=== PATIENT | male | born 1975 | race Two or more races ===

== ENCOUNTER 2022-02-12 01:01 | Inpatient (IN) | payer MEDICAID ==
[~2022-02-12] VITALS: Ht 167.6 cm; Wt 80.7 kg
[2022-02-12] MEDS ORDERED: SODIUM CHLORIDE 0.9% 1,000 ML IV ONE ×2 (01:30→02:15)
[2022-02-12 01:53] LABS: CHLORIDE 108 mEq/L (98-107)
[2022-02-12 02:09] LABS: ETHANOL BLOOD < 10 mg/dL
[2022-02-12] MEDS ORDERED: LACTULOSE 20G/30ML UDC PO SCH (02:15)
[2022-02-12 02:26] LABS: BASOPHILS % 1.1 % (0.0-2.0); EOSINOPHILS % 1.7 % (0.0-5.0); HEMOGLOBIN. 9.7 g/dL (14.0-18.0); LYMPHOCYTES % 12.8 % (20.0-50.0); MEAN CORPUSCULAR HEMOGLOBIN 23.6 pg (28.0-32.0); MEAN CORPUSCULAR VOLUME 75.3 fL (80.0-94.0); MEAN PLATELET VOLUME 10.6 fl (7.4-10.4); MONOCYTES % 14.3 % (2.0-8.0); NEUTROPHILS % 70.1 % (40.0-76.0); PLATELET 100 x1000/uL (130-400); RED BLOOD CELL COUNT 4.12 mill/uL (4.7-6.1); RED CELL DISTRIBUTION WIDTH 18.8 % (11.6-14.6)
[2022-02-12] MEDS ORDERED: LACTULOSE 300 ML in WATER FOR IRRIGATION,STERILE 700 ML IR SCH (03:00)
[2022-02-12 03:30] LABS: CLARITY URINE CLEAR (CLEAR); COLOR URINE DARK YELLOW (YELLOW); KETONES URINE NEGATIVE (NEGATIVE); LEUKOCYTE ESTERASE URINE TRACE (NEGATIVE); NITRITE URINE NEGATIVE (NEGATIVE); OCCULT BLOOD URINE NEGATIVE (NEGATIVE); PH URINE >=9.0 (4.5-8.0); PROTEIN URINE 1+ (NEGATIVE); SPECIFIC GRAVITY URINE 1.025 (1.005-1.030)
[2022-02-12 03:48] LABS: *AMPHETAMINES SCREEN URINE NEGATIVE (NEGATIVE); *BARBITURATES SCREEN URINE NEGATIVE (NEGATIVE); *BENZODIAZEPINES SCREEN URINE NEGATIVE (NEGATIVE); *COCAINE SCREEN URINE NEGATIVE (NEGATIVE); CANNABINOID URINE SCREEN NEGATIVE (NEGATIVE); METHADONE URINE SCREEN NEGATIVE (NEGATIVE); OPIATES URINE SCREEN NEGATIVE (NEGATIVE); PHENCYCLIDINE URINE SCREEN NEGATIVE (NEGATIVE)
[2022-02-12] MEDS ORDERED: CEFTRIAXONE 1 G PREMIX 50 ML IV SCH (04:45)
[2022-02-12] MEDS: SODIUM CHLORIDE 0.45% 1,000 ML IV SCH (08:30)
[2022-02-12] MEDS ORDERED: ACETAMINOPHEN 325MG TABLET PO PRN (08:30)
[2022-02-12] MEDS ORDERED: GUAIFENESIN 200MG/10ML SUGAR FREE UDC PO PRN (08:30)
[2022-02-12] MEDS ORDERED: ONDANSETRON HCL 4MG/2ML INJ IV PRN (08:30)
[2022-02-12] MEDS ORDERED: MAGNESIUM/ALUMINUM HYDROXIDE/SIMETHICONE 30ML UDC PO PRN (08:30)
[2022-02-12] MEDS ORDERED: IPRATROPIUM/ALBUTEROL 0.5-3(2.5)MG/3ML NEB NEB PRN (08:30)
[2022-02-12] MEDS ORDERED: CLONIDINE 0.1MG TABLET PO PRN (08:30)
[2022-02-12] MEDS ORDERED: DOCUSATE SODIUM 100MG CAPSULE PO PRN (08:30)
[2022-02-12] MEDS ORDERED: NA PHOS,M-B/NA PHOS,DI-BA ENEMA 118ML PR PRN (08:30)
[2022-02-12] MEDS ORDERED: NALOXONE HCL 0.4MG/ML VIAL IV PRN (08:45)
[2022-02-12] MEDS: LORAZEPAM 2MG/ML CPJ IV PRN ×2 (09:46→18:31)
[2022-02-12 10:37] LABS: TOTAL IRON BINDING CAPACITY 387 ug/dL (250-450)
[2022-02-12 11:03] LABS: FOLIC ACID (FOLATE) SERUM 17.7 ng/mL (>5.38)
[2022-02-12] MEDS: IRON SUCROSE COMPLEX 100 MG/5 ML ML IV SCH (12:30)
[2022-02-12] MEDS ORDERED: LACTULOSE 300 ML in WATER FOR IRRIGATION,STERILE 700 ML IR NR (14:00)
[2022-02-12] MEDS: DIPHENHYDRAMINE 50MG/ML VIAL IV PRN (15:16)
[2022-02-12] MEDS: MORPHINE SULFATE 2 MG/ML CPJ (NOT FOR IM USE) IV PRN (15:48)
[2022-02-12 23:20] VITALS: BP 120/55
[2022-02-12 23:22] VITALS: BP 120/55
[2022-02-13] VITALS: BP 132/79
[2022-02-13] MEDS: SODIUM CHLORIDE 0.45% 1,000 ML IV SCH (00:12)
[2022-02-13] MEDS ORDERED: SPIR50TA5 PO (03:27)
[2022-02-13 04:00] VITALS: BP 154/92
[2022-02-13 06:13] LABS: CHLORIDE 110 mEq/L (98-107)
[2022-02-13 06:18] LABS: EOSINOPHILS % 2.4 % (0.0-5.0); HEMATOCRIT. 27.6 % (42.0-52.0); HEMOGLOBIN. 8.9 g/dL (14.0-18.0); LYMPHOCYTES % 13.5 % (20.0-50.0); MEAN CORPUSCULAR HEMOGLOBIN 23.8 pg (28.0-32.0); MEAN CORPUSCULAR VOLUME 73.9 fL (80.0-94.0); MEAN PLATELET VOLUME 9.9 fl (7.4-10.4); MONOCYTES % 14.6 % (2.0-8.0); NEUTROPHILS % 67.5 % (40.0-76.0); PLATELET 96 x1000/uL (130-400); RED BLOOD CELL COUNT 3.73 mill/uL (4.7-6.1); RED CELL DISTRIBUTION WIDTH 18.7 % (11.6-14.6)
[2022-02-13 08:00] VITALS: BP 166/89
[2022-02-13 10:37] LABS: INR 1.3; PROTHROMBIN TIME 13.8 sec (9.6-11.0)
[2022-02-13 12:00] VITALS: BP 155/100
[2022-02-13] MEDS: IRON SUCROSE COMPLEX 100 MG/5 ML ML IV SCH (12:27)
[2022-02-13] MEDS: MORPHINE SULFATE 2 MG/ML CPJ (NOT FOR IM USE) IV PRN ×2 (12:29→21:32)
[2022-02-13] MEDS: HYDROCODONE/ACETAMINOPHEN 5/325MG TABLET PO PRN (14:11)
[2022-02-13] MEDS: LORAZEPAM 2MG/ML CPJ IV PRN (15:25)
[2022-02-13 16:00] VITALS: BP 156/95
[2022-02-13 16:35] LABS: HEPATITIS B SURFACE ANTIGEN NEGATIVE
[2022-02-13 20:00] VITALS: BP 159/90
[2022-02-13] MEDS: LACTULOSE 20G/30ML UDC PO SCH (21:31)
[2022-02-14] VITALS: BP 126/81
[2022-02-14] MEDS: DIPHENHYDRAMINE 50MG/ML VIAL IV PRN (00:03)
[2022-02-14] MEDS: SODIUM CHLORIDE 0.45% 1,000 ML IV SCH ×2 (00:04→20:36)
[2022-02-14] MEDS: MORPHINE SULFATE 2 MG/ML CPJ (NOT FOR IM USE) IV PRN ×2 (03:03→14:33)
[2022-02-14 04:00] VITALS: BP 141/65
[2022-02-14] MEDS: LACTULOSE 20G/30ML UDC PO SCH ×3 (05:54→21:20)
[2022-02-14 07:18] LABS: BASOPHILS % 0.9 % (0.0-2.0); EOSINOPHILS % 4.3 % (0.0-5.0); HEMATOCRIT. 27.6 % (42.0-52.0); HEMOGLOBIN. 8.9 g/dL (14.0-18.0); LYMPHOCYTES % 15.1 % (20.0-50.0); MEAN CORPUSCULAR HEMOGLOBIN 23.8 pg (28.0-32.0); MEAN CORPUSCULAR VOLUME 73.6 fL (80.0-94.0); MEAN PLATELET VOLUME 9.4 fl (7.4-10.4); MONOCYTES % 14.6 % (2.0-8.0); NEUTROPHILS % 65.1 % (40.0-76.0); PLATELET 102 x1000/uL (130-400); RED BLOOD CELL COUNT 3.75 mill/uL (4.7-6.1); RED CELL DISTRIBUTION WIDTH 19.1 % (11.6-14.6)
[2022-02-14 07:36] LABS: INR 1.3; PROTHROMBIN TIME 14.1 sec (9.6-11.0)
[2022-02-14 08:33] LABS: CHLORIDE 109 mEq/L (98-107)
[2022-02-14] MEDS ORDERED: LIDOCAINE HCL/PF 1% 10 MG/ML 5ML VIAL ONE ×2 (08:56→08:57)
[2022-02-14] MEDS ORDERED: SODIUM BICARBONATE 4% (2.4MEQ) 5ML VIAL IV ONE (08:56)
[2022-02-14 12:00] VITALS: BP 112/74
[2022-02-14] MEDS: IRON SUCROSE COMPLEX 100 MG/5 ML ML IV SCH (12:48)
[2022-02-14] MEDS: RIFAXIMIN 550 MG TABLET PO SCH ×2 (12:49→21:20)
[2022-02-14 16:00] VITALS: BP 114/73
[2022-02-14] MEDS: HYDROCODONE/ACETAMINOPHEN 5/325MG TABLET PO PRN (20:36)
[2022-02-14] MEDS: LORAZEPAM 2MG/ML CPJ IV PRN (23:10)
[2022-02-15] VITALS: BP 124/79
[2022-02-15 04:00] VITALS: BP 133/88
[2022-02-15] MEDS: LACTULOSE 20G/30ML UDC PO SCH ×2 (05:56→14:00)
[2022-02-15 07:32] LABS: EOSINOPHILS % 3.6 % (0.0-5.0); HEMATOCRIT. 28.5 % (42.0-52.0); HEMOGLOBIN. 9.1 g/dL (14.0-18.0); LYMPHOCYTES % 12.8 % (20.0-50.0); MEAN CORPUSCULAR HEMOGLOBIN 23.8 pg (28.0-32.0); MEAN PLATELET VOLUME 10.5 fl (7.4-10.4); MONOCYTES % 12.8 % (2.0-8.0); NEUTROPHILS % 69.8 % (40.0-76.0); PLATELET 115 x1000/uL (130-400); RED CELL DISTRIBUTION WIDTH 18.6 % (11.6-14.6)
[2022-02-15 07:59] LABS: CHLORIDE 108 mEq/L (98-107)
[2022-02-15 08:00] VITALS: BP 149/95
[2022-02-15] MEDS: RIFAXIMIN 550 MG TABLET PO SCH (09:43)
[2022-02-15 12:00] VITALS: BP_SYST 111; BP_SYST 149; BP_DIAS 61; BP_DIAS 81
[2022-02-15 13:47] VITALS: BP 111/61
== END 2022-02-15 16:15 | disposition home or self-care (01) | DRG 279 ==
LOC: ER 01:01 → 7WST 04:33 → ENRESERV 21:20
PROVIDERS: ADMIT Internal Medicine; ATTEND Internal Medicine
PROC: 0JBR0ZZ Excision of Left Foot Subcutaneous Tissue and Fascia, Open Approach (ICD-10-PCS; principal; 2022-02-14)
PROC: 0JBQ0ZZ Excision of Right Foot Subcutaneous Tissue and Fascia, Open Approach (ICD-10-PCS; 2022-02-14)
PROC: 0W9G3ZZ Drainage of Peritoneal Cavity, Percutaneous Approach (ICD-10-PCS; 2022-02-14)
DX: K72.90 Hepatic failure, unspecified without coma (principal); G93.41 Metabolic encephalopathy; D61.818 Other pancytopenia; R18.8 Other ascites; E72.20 Disorder of urea cycle metabolism, unspecified; D50.9 Iron deficiency anemia, unspecified; J45.909 Unspecified asthma, uncomplicated; N39.0 Urinary tract infection, site not specified; I10 Essential (primary) hypertension; R74.01 Elevation of levels of liver transaminase levels; L85.9 Epidermal thickening, unspecified; Z20.822 Contact with and (suspected) exposure to COVID-19; E11.628 Type 2 diabetes mellitus with other skin complications; S91.102A Unspecified open wound of left great toe without damage to nail, initial encounter; S91.104A Unspecified open wound of right lesser toe(s) without damage to nail, initial encounter
CPT/HCPCS: 36415; 49083; 71045; 72170; 76700; 78227; 80048; 80053; 80076; 80305; 80320; 81003; 82040; 82140; 82607; 82728; 82746; 82962; 83540; 83550; 83605; 84145; 84443; 84484; 85025; 85044; 86705; 86709; 86803; 87340; 87426; 88108; 88312; 93306; 93923; 99291; A9537; J0696; J1200; J2060; J2270; J3490; J7030; G0480